=== PATIENT | male | born 1970 | race Two or more races ===

== ENCOUNTER 2016-09-03 14:04 | Emergency (ER) | payer BC ==
[~2016-09-03] VITALS: Ht 175.3 cm; Wt 81.6 kg
[2016-09-03] MEDS ORDERED: CICL544C TOP (14:17)
--- NOTE | 2016-09-03 14:37 | NUR ---
MSE COMPLETED. PT D/C'D HOME, ACI/RX X1 GIVEN. PT AMBULATED W/O DIFF/TOOK ALL BELONGINGS.
[2016-09-03 14:38] VITALS: BP 111/65
== END 2016-09-03 14:39 | disposition home or self-care (01) ==
LOC: ER 14:07
DX: A60.00 Herpesviral infection of urogenital system, unspecified (principal); F10.10 Alcohol abuse, uncomplicated; F12.10 Cannabis abuse, uncomplicated
CPT/HCPCS: 99283; A4663